=== PATIENT | male | born 1965 | race Caucasian/White ===

== ENCOUNTER 2022-09-04 17:33 | Inpatient (IN) | payer OTHER ==
[~2022-09-04] VITALS: Ht 170.2 cm; Wt 131.1 kg
--- NOTE | 2022-09-04 17:52 | NUR ---
PT IN BED 7, A/OX4 BREATHING IS EVEN AND UNLABORED. C/O: left leg swelling for 3 days not getting better with ABX therapy. no redness of assessment left heal wound saturated and fowl odor. pt has Hx of DM, HTN, several stents and cardiac pathologies.
[2022-09-04] MEDS ORDERED: KETOROLAC TROMETHAMINE INJ 30 MG/ML VIAL IV ONE (18:30)
[2022-09-04] MEDS ORDERED: FUROSEMIDE 40 MG/4 ML VIAL IV ONE (18:30)
[2022-09-04] MEDS ORDERED: VANCOMYCIN HCL 1.25 GM in IV D5W 260 ML IV ONE (18:30)
[2022-09-04] MEDS ORDERED: VANCOMYCIN 1 GM /D5W 250 ML PB IV ONE (18:32)
[2022-09-04] MEDS ORDERED: FUROSEMIDE 40 MG/4 ML VIAL ONE (18:32)
[2022-09-04] MEDS ORDERED: KETOROLAC TROMETHAMINE 15 MG/ML VIAL ONE (18:32)
[2022-09-04 19:17] LABS: BASOPHILS % (AUTO) 0.4 % (0.0-2.0); EOSINOPHILS % (AUTO) 4.1 % (0.0-6.0); HEMATOCRIT 30 % (39-51); HEMOGLOBIN 9.6 g/dL (13.5-17.5); LYMPHOCYTES # (AUTO) 1.4 K/uL (0.8-4.8); LYMPHOCYTES % (AUTO) 18.5 % (20.0-44.0); MEAN CORPUSCULAR HGB CONC 32 g/dl (31.0-36.0); MEAN CORPUSCULAR VOLUME 87 fL (80-96); MONOCYTES # (AUTO) 0.6 K/uL (0.1-1.30); MONOCYTES % (AUTO) 8.4 % (2.0-12.0); NEUTROPHILS # (AUTO) 5.1 K/uL (1.8-8.9); NEUTROPHILS % (AUTO) 68.6 % (43.0-81.0); PLATELET COUNT (AUTO) 226 K/uL (150-450); RED BLOOD CELL COUNT(AUTO) 3.44 MIL/uL (4.5-6.0); WHITE BLOOD COUNT (AUTO) 7.5 K/uL (4.3-11.0)
[2022-09-04 19:25] LABS: CARBON DIOXIDE 28 mmol/L (21-32); CHLORIDE 106 mmol/L (98-107); GLUCOSE 177 mg/dL (74-106); POTASSIUM 5.3 mmol/L (3.5-5.1); SODIUM SERUM 141 mmol/L (136-145); UREA NITROGEN, BLOOD 39 mg/dL (7-18)
[2022-09-04 19:41] LABS: ALANINE AMINOTRANSFERASE 19 U/L (12-78); ALBUMIN 2.8 g/dL (3.4-5.0); ALKALINE PHOSPHATASE 89 U/L (46-116); ASPARTATE AMINOTRANSFERASE 10 U/L (15-37); BILIRUBIN,DIRECT 0.1 mg/dL (0.0-0.2); BILIRUBIN,TOTAL 0.2 mg/dL (0.2-1.0); TOTAL PROTEIN, SERUM 6.8 g/dL (6.4-8.2)
--- NOTE | 2022-09-04 19:49 | NUR ---
[facility] PAGED
--- NOTE | 2022-09-04 20:31 | NUR ---
CONTACTED MD NIALL ON THE LINE WITH ADMITTING TECHNICAL PRODUCER
--- NOTE | 2022-09-04 21:04 | NUR ---
report given to rex durand for inpatient services.
--- NOTE | 2022-09-04 21:40 | NUR ---
integrated logistics programs directorrestaurant front manager Note Admitted this patient from ED via [facility] with ER staff at 2120 with dx of Acute Heart Failure. Patient is awake, alert and oriented x 4. On room air; tolerating well. VS taken as follows: T 97.7, WA 66, RR 20, O2 Sat 96%, BP 129/60 mm hg. Not in any form of respiratory or cardiac distress. Attached to telemetry box which reads sinus rhythm with 1st degree AV block and BBB hr-65 bpm. With complaints of pain on left foot. With IV access on left antecubital 20g and right forearm 22g: both patent, intact and saline locked. Able to make needs known. Body and skin assessment done. With wound on left heel. Picture taken and place to chart. Oriented to staff, room and unit. Fall and safety precautions initiated: call light and table within reach, side rails up x 2, bed in lowest locked position. Will continue to monitor throughout shift.
[2022-09-04 21:45] VITALS: BP 157/78; TEMP 98.2
[2022-09-04] MEDS ORDERED: ONDANSETRON HCL/PF 4 MG/2 ML VIAL IVP PRN (22:30)
[2022-09-04] MEDS ORDERED: ACETAMINOPHEN 325 MG TABLET PO PRN (22:30)
[2022-09-04] MEDS: MORPHINE SULFATE INJ 2 MG/ML DISP.SYRIN IV PRN (22:57)
--- NOTE | 2022-09-04 22:57 | NUR ---
RN Note - Pain Management Patient complained of left foot pain with pain scale of 9/10. PRN Morphine inj 2mg/1ml given IV as ordered. Kept comfortable in bed. Will continue to monitor.
[2022-09-04] MEDS: HEPARIN SODIUM, PORCINE 5000 UNITS/1 ML VIAL SQ SCH (23:03)
--- NOTE | 2022-09-04 23:03 | NUR ---
RN Note Hgb - 9.6, Hct - 30, Platelet- 226. No bleeding. Heparin 5000 units/1ml given sq as indicated. Kept comfortable in bed. Will continue to monitor.
[2022-09-05] VITALS: BP 148/75; TEMP 97.9
[2022-09-05 04:00] VITALS: BP 140/69; TEMP 97.6
[2022-09-05] MEDS: MORPHINE SULFATE INJ 2 MG/ML DISP.SYRIN IV PRN ×4 (04:15→22:03)
[2022-09-05] MEDS ORDERED: DEXTROSE 50%-WATER 50 ML DISP.SYRIN IV PRN ×2 (06:00→13:00)
[2022-09-05] MEDS: INSULIN REGULAR, HUMAN 100 UNIT/ML 3 ML VIAL SQ PRN ×4 (06:53→22:30)
[2022-09-05] MEDS: BLOOD SUGAR DIAGNOSTIC 1 EACH STRIP IN SCH ×4 (06:53→22:26)
--- NOTE | 2022-09-05 06:53 | NUR ---
RN Note Blood sugar checked - 121 mg/dl. No insulin coverage given as ordered per sliding scale. Will continue to monitor.
--- NOTE | 2022-09-05 06:56 | NUR ---
testing consultant Closing Note Patient in bed; awake, a/o x 4. Stable on room air. In no acute distress. On telemetry monitoring which reads sinus rhythm with 1st degree AV block and BBB hr-66 bpm. No c/o pain or discomfort. All needs attended. All due meds given as ordered. Fall and safety precautions maintained. Endorsed to incoming nurse for continuity of care.
[2022-09-05 07:00] VITALS: BP 113/51; TEMP 97.8
[2022-09-05 07:08] LABS: BASOPHILS % (AUTO) 0.7 % (0.0-2.0); EOSINOPHILS % (AUTO) 4.8 % (0.0-6.0); HEMATOCRIT 28 % (39-51); HEMOGLOBIN 9.1 g/dL (13.5-17.5); LYMPHOCYTES # (AUTO) 1.7 K/uL (0.8-4.8); MEAN CORPUSCULAR HGB CONC 32 g/dl (31.0-36.0); MEAN CORPUSCULAR VOLUME 88 fL (80-96); MONOCYTES # (AUTO) 0.6 K/uL (0.1-1.30); MONOCYTES % (AUTO) 8.3 % (2.0-12.0); NEUTROPHILS # (AUTO) 4.3 K/uL (1.8-8.9); NEUTROPHILS % (AUTO) 62.2 % (43.0-81.0); PLATELET COUNT (AUTO) 222 K/uL (150-450); RED BLOOD CELL COUNT(AUTO) 3.24 MIL/uL (4.5-6.0)
--- NOTE | 2022-09-05 07:25 | NUR ---
RN OPENING NOTE RECEIVED PATIENT IN BED , AWAKE, A/O X4, VERBALLY RESPONSIVE AND ABLE TO MAKE NEEDS KNOWN. NO SIGNS OF ACUTE DISTRESS NOTED. ON ROOM AIR, TOLERATING WELL. NO SOB NOTED, BREATHING EVEN AND UNLABORED. DENIES ANY PAIN AT THIS TIME. ON COURT OF APPEALS JUDGE SHOWING SINUS RHYTHM WITH BBB, HR @64. WITH IV ACCESS ON LEFT AC #20G AND RIGHT FOREARM #22G, INTACT AND PATENT, SALINE LOCKED. SAFETY MEASURE IN PLACE. BED IN LOW AND LOCKED POSITION, SIDE RAILS UP X2, CALL LIGHT PLACED WITHIN EASY REACH. WILL CONTINUE TO MONITOR PATIENT.
[2022-09-05 07:52] LABS: CALCIUM, SERUM 8.7 mg/dL (8.5-10.1); CREATININE 1.8 mg/dL (0.6-1.3); MAGNESIUM 1.9 mg/dL (1.8-2.4); PHOSPHORUS 4.3 mg/dL (2.5-4.9); POTASSIUM 4.8 mmol/L (3.5-5.1)
[2022-09-05] MEDS: HEPARIN SODIUM, PORCINE 5000 UNITS/1 ML VIAL SQ SCH ×2 (08:43→21:59)
[2022-09-05 08:59] LABS: THYROID STIMULATING HORMONE 1.74 uIU/mL (0.358-3.74)
[2022-09-05] MEDS ORDERED: HYDR-500 PO (10:56)
[2022-09-05] MEDS ORDERED: CEFT1VIA14 IJ (10:56)
[2022-09-05] MEDS ORDERED: CLOP75TA15 PO (10:56)
[2022-09-05] MEDS ORDERED: INSU100V7 SQ (10:56)
[2022-09-05] MEDS ORDERED: NITR0.4T48 SL (10:56)
[2022-09-05] MEDS ORDERED: HYDR-4077 PO (10:56)
[2022-09-05] MEDS ORDERED: PANT40TA2 PO (10:56)
[2022-09-05] MEDS ORDERED: TAMS-12 PO (10:56)
[2022-09-05] MEDS ORDERED: BISA10SU11 RC (10:56)
[2022-09-05] MEDS ORDERED: FURO-144 PO (10:56)
[2022-09-05] MEDS ORDERED: MULT-447 PO (10:56)
[2022-09-05] MEDS ORDERED: NA P133E RC (10:56)
[2022-09-05] MEDS ORDERED: ZINC50TA69 PO (10:56)
[2022-09-05] MEDS ORDERED: POVI3780 TP (10:56)
[2022-09-05] MEDS ORDERED: ESCI5TAB PO (10:56)
[2022-09-05] MEDS ORDERED: QUET50TA PO (10:56)
[2022-09-05] MEDS ORDERED: ACET-2605 PO (10:56)
[2022-09-05] MEDS ORDERED: SPIR50TA PO (10:56)
[2022-09-05] MEDS ORDERED: CARV25TA2 PO (10:56)
[2022-09-05] MEDS ORDERED: DOCU-141 PO (10:56)
[2022-09-05] MEDS ORDERED: SENN-261 PO (10:56)
[2022-09-05] MEDS ORDERED: BUPR2TAB3 SL (10:56)
[2022-09-05] MEDS ORDERED: AMLO-212 PO (10:56)
[2022-09-05] MEDS ORDERED: ACET-868 PO ×2 (10:56)
[2022-09-05] MEDS ORDERED: MAGN400O6 PO (10:56)
[2022-09-05] MEDS ORDERED: ASPI-1169 PO (10:56)
[2022-09-05] MEDS ORDERED: CLON0.1T PO (10:56)
[2022-09-05] MEDS ORDERED: DULA0.75 SQ (10:56)
[2022-09-05] MEDS ORDERED: ASCO-352 PO (10:56)
[2022-09-05] MEDS ORDERED: AMIN30LI2 PO (10:56)
[2022-09-05] MEDS ORDERED: ATOR40TA PO (10:56)
[2022-09-05] MEDS ORDERED: GABA800T11 PO (10:56)
[2022-09-05] MEDS ORDERED: POLY15DR40 EACHEYE (10:56)
[2022-09-05 13:00] VITALS: BP 127/64; TEMP 97.7
[2022-09-05] MEDS ORDERED: BUPRENORPHINE HCL 2 MG TAB.SUBL SL SCH (13:00)
[2022-09-05] MEDS ORDERED: NITROGLYCERIN 0.4 MG/TAB BOTTLE SL PRN (13:00)
[2022-09-05] MEDS ORDERED: BISACODYL SUPP (10 MG) 10 MG/SUPP.RECT SUPP.RECT RC PRN (13:00)
[2022-09-05] MEDS: GABAPENTIN 400 MG CAPSULE PO SCH ×2 (13:17→16:19)
[2022-09-05 16:00] VITALS: BP 131/56; TEMP 97.6
--- NOTE | 2022-09-05 16:07 | NUR ---
RN NOTE PATIENT PICKED UP FOR CT SCAN.
[2022-09-05] MEDS: hydrALAZINE HCL 50 MG TABLET PO SCH (16:19)
[2022-09-05] MEDS: CARVEDILOL 12.5 MG TABLET PO SCH (16:19)
[2022-09-05 18:08] LABS: CREATININE, URINE 73.4 MG/DL (30.0-125.0)
[2022-09-05 18:17] LABS: BILIRUBIN,URINE NEGATIVE (NEGATIVE); COLOR,URINE YELLOW (YELLOW); LEUKOCYTE ESTERASE ,URINE NEGATIVE (NEGATIVE); NITRITE, URINE NEGATIVE (NEGATIVE); PROTEIN,URINE 3+ mg/dl (NEGATIVE); UGLUCOSE NEGATIVE (NEGATIVE); UROBILINOGEN,URINE 0.2 EU/dL (0.2)
[2022-09-05 18:27] LABS: BACTERIA,URINE None seen /HPF (None Seen); MUCUS,URINE Few /LPF (None Seen); RBC,URINE 0-2 /HPF (0-2); SQUAMOUS EPITHELIAL CELL,UR 0-2 /HPF (None Seen); WBC,URINE 0-2 /HPF (0-3)
--- NOTE | 2022-09-05 18:42 | NUR ---
RN CLOSING NOTE PATIENT IN BED , ASLEEP, VERBALLY RESPONSIVE AND ABLE TO MAKE NEEDS KNOWN. NO SIGNS OF ACUTE DISTRESS NOTED. STABLE ON ROOM AIR, NO SOB NOTED, BREATHING EVEN AND UNLABORED. CONTINUE ON COUNTRY SALES MANAGER SHOWING SINUS RHYTHM WITH BBB, HR @66. WITH IV ACCESS ON LEFT AC #20G AND RIGHT FOREARM #22G, INTACT AND PATENT, SALINE LOCKED. SAFETY MEASURE MAINTAINED. BED IN LOW AND LOCKED POSITION, SIDE RAILS UP X2, CALL LIGHT PLACED WITHIN EASY REACH. WILL ENDORSE TO NEXT SHIFT FOR CONTINUITY OF CARE.
--- NOTE | 2022-09-05 19:40 | NUR ---
ground crewman Opening Note Received patient in bed; awake, alert and oriented x 4. On room air; tolerating well. Breathing even and nonlabored. Not in any form of respiratory or cardiac distress. On telemetry monitoring which reads sinus rhythm with bbb hr-69 bpm. No c/o any pain or discomfort. With IV access on left antecubital 20g and right forearm 22g; both patent, intact and saline locked. Able to verbalize needs. Fall and safety precautions implemented: call light and table within reach, side rails up x 3, bed in lowest locked position. Will continue to monitor throughout shift.
[2022-09-05 20:00] VITALS: BP_SYST 136; BP_DIAS 55; BP_DIAS 85; TEMP 98.1
[2022-09-05] MEDS: INSULIN GLARGINE, 100 UNIT/ML CARTRIDGE SQ SCH (22:00)
--- NOTE | 2022-09-05 22:00 | NUR ---
RN Note Patient refused to receive heparin inj 5000 units 1 ml. Explained risks and benefits of following medical regimen; still refused to receive medication. Will continue to monitor.
[2022-09-05] MEDS: SENNOSIDES 8.6 MG TABLET PO SCH (22:02)
[2022-09-05] MEDS: QUETIAPINE FUMARATE 25 MG TABLET PO SCH (22:02)
[2022-09-05] MEDS: ATORVASTATIN 40 MG TABLET PO SCH (22:04)
--- NOTE | 2022-09-05 22:58 | NUR ---
RN Note Blood sugar checked with result of 99 mg/dl; within normal range. No regular insulin coverage given per sliding scale. Insulin lantus 63 units held. Will continue to monitor for s/sx of hypoglycemia/hyperglycemia.
[2022-09-06] VITALS (7 sets, daily range): BP systolic 124–158; BP diastolic 66–77; TEMP 97.8–98.8
[2022-09-06] MEDS: MORPHINE SULFATE INJ 2 MG/ML DISP.SYRIN IV PRN ×4 (05:54→20:47)
--- NOTE | 2022-09-06 05:54 | NUR ---
RN Note - Pain Management Patient complained of left foot pain with pain scale of 10/10. PRN Morphine inj 2mg/1ml given IV as ordered. Kept comfortable in bed. Will continue to monitor.
[2022-09-06] MEDS: BLOOD SUGAR DIAGNOSTIC 1 EACH STRIP IN SCH ×4 (06:05→21:36)
[2022-09-06] MEDS: INSULIN REGULAR, HUMAN 100 UNIT/ML 3 ML VIAL SQ PRN ×4 (06:06→21:40)
--- NOTE | 2022-09-06 06:06 | NUR ---
RN Note - Accu-chek Blood sugar checked with result of 93 mg/dl; within normal range. No regular insulin coverage given per sliding scale. Will continue to monitor for s/sx of hypoglycemia/hyperglycemia.
[2022-09-06 06:17] LABS: BASOPHILS % (AUTO) 0.5 % (0.0-2.0); EOSINOPHILS % (AUTO) 4.5 % (0.0-6.0); HEMATOCRIT 30 % (39-51); HEMOGLOBIN 9.7 g/dL (13.5-17.5); LYMPHOCYTES # (AUTO) 1.4 K/uL (0.8-4.8); LYMPHOCYTES % (AUTO) 20.9 % (20.0-44.0); MEAN CORPUSCULAR HGB CONC 33 g/dl (31.0-36.0); MEAN CORPUSCULAR VOLUME 87 fL (80-96); MONOCYTES # (AUTO) 0.6 K/uL (0.1-1.30); MONOCYTES % (AUTO) 9.1 % (2.0-12.0); NEUTROPHILS # (AUTO) 4.5 K/uL (1.8-8.9); PLATELET COUNT (AUTO) 202 K/uL (150-450); RED BLOOD CELL COUNT(AUTO) 3.41 MIL/uL (4.5-6.0); WHITE BLOOD COUNT (AUTO) 6.9 K/uL (4.3-11.0)
[2022-09-06 06:41] LABS: ALBUMIN 2.5 g/dL (3.4-5.0); BILIRUBIN,TOTAL 0.3 mg/dL (0.2-1.0); CALCIUM, SERUM 9.1 mg/dL (8.5-10.1); CREATININE 1.7 mg/dL (0.6-1.3); MAGNESIUM 1.9 mg/dL (1.8-2.4); POTASSIUM 4.6 mmol/L (3.5-5.1); TOTAL PROTEIN, SERUM 6.3 g/dL (6.4-8.2)
--- NOTE | 2022-09-06 06:45 | NUR ---
gas turbine assembler Closing Note Patient in bed; awake, a/o x 4. Stable on room air. In no acute distress. No c/o pain or discomfort. With IV access on left antecubital 20g and right forearm 22g both: patent, intact and saline locked. On telemetry monitoring which reads sr with 1st degree av block and bbb hr-68 bpm. All needs met. All due meds given as ordered. Fall and safety precautions maintained. Endorsed to incoming nurse for continuity of care.
--- NOTE | 2022-09-06 07:30 | NUR ---
Received Pt care from shift leader. Pt A/O*4, follow commands, no SOB, and no distress at this moment. Complaint of left foot pain when touching. Respiration regular, even and unlabored. Skin dry, but has left heel open wound. IV site right forearm 22G SL and left AC 20G SL patent and dressing intact. ekg monitor captured sinus rhythm at 70bpm. Bowel sounds present all quadrants. Hand grades 1 through 5 teacher strong equally CMS intact. bilateral feet and legs are swelling. All safety measures in place. Bed in low and locked, call light and table in reach, side rails up*2. Will continue monitoring. Addendum: 09/06/22 at 1105 by KRISTINE MARTINEZ RN contract implementation analyst Opening Note
[2022-09-06] MEDS: GABAPENTIN 400 MG CAPSULE PO SCH ×3 (09:01→17:16)
[2022-09-06] MEDS: ASPIRIN 81 MG TAB.CHEW PO SCH (09:01)
[2022-09-06] MEDS: CLOPIDOGREL BISULFATE 75 MG TABLET PO SCH (09:01)
[2022-09-06] MEDS: TAMSULOSIN 0.4 MG CAP.SR.24H PO SCH (09:01)
[2022-09-06] MEDS: ASCORBIC ACID 500 MG TABLET PO SCH (09:01)
[2022-09-06] MEDS: AMLODIPINE BESYLATE 5 MG TABLET PO SCH (09:02)
[2022-09-06] MEDS: CARVEDILOL 12.5 MG TABLET PO SCH ×2 (09:03→17:17)
[2022-09-06] MEDS: SPIRONOLACTONE 25 MG TABLET PO SCH (09:03)
[2022-09-06] MEDS: hydrALAZINE HCL 50 MG TABLET PO SCH ×2 (09:03→17:18)
[2022-09-06] MEDS: DOCUSATE SODIUM 100 MG CAPSULE PO SCH (09:04)
[2022-09-06] MEDS: HEPARIN SODIUM, PORCINE 5000 UNITS/1 ML VIAL SQ SCH ×2 (09:04→21:12)
[2022-09-06] MEDS: ESCITALOPRAM OXALATE (10 MG) 10 MG TABLET PO SCH (09:05)
[2022-09-06] MEDS: FUROSEMIDE 40 MG TABLET PO SCH (09:06)
[2022-09-06] MEDS: PANTOPRAZOLE 40 MG TABLET.DR PO SCH (09:06)
--- NOTE | 2022-09-06 10:16 | NUR ---
WOUND CARE CONSULT: PT PRESENTS WITH LEFT HEEL OPEN BLISTER, PRESENT ON ADMISSION. DR GARIBAY CALLED FOR DPM CONSULT. IN AGREEMENT WITH PLAN OF CARE. DISCUSSED SKIN PROTECTION WITH NURSING STAFF.
--- NOTE | 2022-09-06 10:50 | NUR ---
neurology physician Note Pt complaint of left foot pain 8 out of 10 pounding pain, constant and unease by breathing and resting. PRN Morphine 2mg IVP was administered per MD order. Will continue monitoring.
[2022-09-06] MEDS: SOD FERRIC GLUC 125 MG in IV NS 0.9% 100 ML IV SCH (14:39)
[2022-09-06 15:35] LABS: PROSTATE SPECIFIC ANTIGEN SCR 0.26 ng/mL (0.00-4.00)
--- NOTE | 2022-09-06 18:45 | NUR ---
RN MS Closing Note Pt A/O*4, follow commands, no SOB, no pain and no distress at this moment. Respiration regular, even and unlabored with RA. Skin dry, but has left heel open wound covered by Xeroform and Mepilex. IV site left AC 20G SL patent and dressing intact. circuit tester discontinued per MD order and monitor returned to biomed tech. Bowel sounds present all quadrants. No bowel movement today. Voided 4 times with total output of 2500mL. Hand pipe insulator strong equally CMS intact. bilateral feet and legs are swelling. All safety measures in place. Bed in low and locked, call light and table in reach, side rails up*2. Endorsed pt care to chemist food.
--- NOTE | 2022-09-06 19:45 | NUR ---
MS RITCHIE INITIAL NOTES RECEIVED REPORT FROM AM NURSE AND SEEN PATIENT IN BED LYING DOWN ON HIS RIGHT SIDE. RESTING WITH EYES CLOSED BUT AROUSE EASILY. HE HAS HEPLOCK ON HIS LEFT AC PATENT AND INTACT , DENIES ANY PAIN OR ANY DISCOMFORT. EDUCATE PATIENT REGARDING HIS DIET AND FLUID INTAKE AND AT THE SAME TIME ABOUT THE CHF . PT UNDERSTOOD WELL. KEPT HIM WARM AND COMFORTABLE AT ALL TIMES. BED IN LOW AND LOCK IN POSITION WITH SIDE RAILS X2 UP AND CALL LIGHT AT REACH. WILL CONTINUE MONITORING.
[2022-09-06] MEDS: INSULIN GLARGINE, 100 UNIT/ML CARTRIDGE SQ SCH (21:38)
[2022-09-06] MEDS: ATORVASTATIN 40 MG TABLET PO SCH (21:43)
[2022-09-06] MEDS: QUETIAPINE FUMARATE 25 MG TABLET PO SCH (21:44)
[2022-09-06] MEDS: SENNOSIDES 8.6 MG TABLET PO SCH (21:44)
--- NOTE | 2022-09-06 22:07 | NUR ---
MS RITCHIE NOTES ROUTINE MEDS GIVEN ORDERED. BLOOD SUGAR CHECKED DONE WELL 131, 2 UNITS OF REGULAR INSULIN AT THIS TIME GIVEN ROSHAN SQ ORDERED. SNACKS ALSO SERVED. WILL CONTINUE MONITORING.
[2022-09-07] MEDS: MORPHINE SULFATE INJ 2 MG/ML DISP.SYRIN IV PRN ×3 (01:34→12:05)
--- NOTE | 2022-09-07 01:34 | NUR ---
RN NOTE PT COMPLAINED OF L FOOT PAIN 12/28. ADMINISTERED MORPHINE 2 MG FOR SEVERE PAIN ORDERED. ALL NEEDS MET AT THIS TIME.
[2022-09-07] MEDS: BLOOD SUGAR DIAGNOSTIC 1 EACH STRIP IN SCH ×2 (07:04→12:03)
[2022-09-07] MEDS: INSULIN REGULAR, HUMAN 100 UNIT/ML 3 ML VIAL SQ PRN ×2 (07:05→12:04)
[2022-09-07 07:18] LABS: BASOPHILS % (AUTO) 0.5 % (0.0-2.0); EOSINOPHILS % (AUTO) 3.8 % (0.0-6.0); HEMATOCRIT 30 % (39-51); HEMOGLOBIN 9.7 g/dL (13.5-17.5); LYMPHOCYTES # (AUTO) 1.5 K/uL (0.8-4.8); LYMPHOCYTES % (AUTO) 21.8 % (20.0-44.0); MEAN CORPUSCULAR HGB CONC 33 g/dl (31.0-36.0); MEAN CORPUSCULAR VOLUME 87 fL (80-96); MONOCYTES # (AUTO) 0.7 K/uL (0.1-1.30); MONOCYTES % (AUTO) 9.6 % (2.0-12.0); NEUTROPHILS # (AUTO) 4.5 K/uL (1.8-8.9); NEUTROPHILS % (AUTO) 64.3 % (43.0-81.0); PLATELET COUNT (AUTO) 239 K/uL (150-450); RED BLOOD CELL COUNT(AUTO) 3.43 MIL/uL (4.5-6.0)
[2022-09-07] MEDS: PANTOPRAZOLE 40 MG TABLET.DR PO SCH (07:34)
[2022-09-07] MEDS: HYDROCODONE/APAP 5/325MG TABLET PO PRN ×2 (07:38→07:39)
--- NOTE | 2022-09-07 07:38 | NUR ---
MS RN OPENING NOTE (DAY SHIFT) Received patient sleeping peacefully in bed, easily aroused, oriented x 4 with c/o pain to left foot. Safety measures in place: bed in lowest position; bed brakes on; bed alarm on; bed side rails up x 2; call marroquin/light withingn easy reach of patient. Will continue to care for and monitor patient per hospitalist MD's POC.
--- NOTE | 2022-09-07 07:42 | NUR ---
MS SOCIAL SERVICE TECHNICIAN CLOSING NOTES PT SLEEPING AT THIS TIME NO SIGNS OF ANY DISTRESS OR ANY DISCOMFORT NOTED. ALL DUE MEDS GIVEN AND ALL NEEDS MET. STABLE THROUGHOUT THE NIGHT . BLOOD SUGAR CHECKED DONE 118 NO INSULIN DUE AT THIS TIME. NO SIGNS OF HYPO GLYCEMIA NOTED. KEPT HIM WARM AND COMFORTABLE AT ALL TIMES. BED IN LOW AND LOCK IN POSITION WITH SIDE RAILS X2 UP . ENDORSED TO AM NURSE FOR CONTINUITY OF CARE.
--- NOTE | 2022-09-07 07:46 | NUR ---
MEDICATION NOTE- WITNESS WASTE I WITNESSED TATO, RN WASTE MEDICATION 1 TAB (5MG HYDROCODONE/ 325MG ACETAMINOPHEN) FOR PT DOMINIQUE GROSS INTO WHITE PHARMACEUTICAL WASTE BOX IN OMNICELL ROOM. PER TATO PATIENT REFUSED DUE TO MEDICATION UPSETTING HIS STOMACH.
--- NOTE | 2022-09-07 07:46 | NUR ---
WASTED NARCOTIC MEDICATION (DAY SHIFT) Patient c/o pain to left foot. Nurse attempted to give norco, but patient refused stating that norco upsets his stomach. Wasted entire 1 tab (5mg hydrocodone/325mg acetaminophen). Waste was witnessed by Amparo Ramos LVN and recorded in [employer].
[2022-09-07 07:51] LABS: ALBUMIN 2.4 g/dL (3.4-5.0); BILIRUBIN,TOTAL 0.2 mg/dL (0.2-1.0); CALCIUM, SERUM 8.7 mg/dL (8.5-10.1); CREATININE 1.7 mg/dL (0.6-1.3); MAGNESIUM 1.7 mg/dL (1.8-2.4); PHOSPHORUS 4.4 mg/dL (2.5-4.9); POTASSIUM 4.6 mmol/L (3.5-5.1); TOTAL PROTEIN, SERUM 6.2 g/dL (6.4-8.2)
[2022-09-07 08:00] VITALS: BP 139/63; TEMP 97.8
[2022-09-07] MEDS: DOCUSATE SODIUM 100 MG CAPSULE PO SCH ×2 (09:00→09:17)
[2022-09-07] MEDS: ESCITALOPRAM OXALATE (10 MG) 10 MG TABLET PO SCH (09:16)
[2022-09-07] MEDS: FUROSEMIDE 40 MG TABLET PO SCH (09:16)
[2022-09-07] MEDS: ASPIRIN 81 MG TAB.CHEW PO SCH (09:16)
[2022-09-07] MEDS: ASCORBIC ACID 500 MG TABLET PO SCH (09:17)
[2022-09-07] MEDS: hydrALAZINE HCL 50 MG TABLET PO SCH (09:17)
[2022-09-07] MEDS: GABAPENTIN 400 MG CAPSULE PO SCH ×2 (09:17→12:04)
[2022-09-07] MEDS: TAMSULOSIN 0.4 MG CAP.SR.24H PO SCH (09:18)
[2022-09-07] MEDS: AMLODIPINE BESYLATE 5 MG TABLET PO SCH (09:18)
[2022-09-07] MEDS: SPIRONOLACTONE 25 MG TABLET PO SCH (09:20)
[2022-09-07 09:21] VITALS: BP 139/63
[2022-09-07] MEDS: CARVEDILOL 12.5 MG TABLET PO SCH (09:21)
[2022-09-07] MEDS: HEPARIN SODIUM, PORCINE 5000 UNITS/1 ML VIAL SQ SCH (09:26)
[2022-09-07] MEDS: CLOPIDOGREL BISULFATE 75 MG TABLET PO SCH (09:26)
[2022-09-07] MEDS ORDERED: MAGNESIUM OXIDE 400 MG TABLET PO ONE (10:00)
[2022-09-07 10:07] LABS: *SPE A/G RATIO 0.9 (0.7-1.7); *SPE ALPHA-1-GLOBULIN 0.3 g/dL (0.0-0.4); *SPE BETA GLOBULIN 0.8 g/dL (0.7-1.3); *SPE M-SPIKE Not Observed g/dL (Not Observed)
[2022-09-07 11:07] LABS: AFP, TUMOR MARKER <1.8 ng/mL (0.0-8.4)
[2022-09-07 13:07] LABS: IMMUNOGLOBULIN A, SERUM 344 mg/dL (90-386); IMMUNOGLOBULIN G, SERUM 912 mg/dL (603-1613); IMMUNOGLOBULIN M, SERUM 133 mg/dL (20-172)
[2022-09-07] MEDS: SOD FERRIC GLUC 125 MG in IV NS 0.9% 100 ML IV SCH (14:00)
--- NOTE | 2022-09-07 15:51 | NUR ---
MS STORE CLERK CHECKER TO SNF NOTE (DAY SHIFT) Patient tolerated well the removal of IV catheter fully intact from left antecubital space without any complications of IV therapy observed. Patient demonstrated understanding of discharge/ post hospital stay POC instructions using teach back method in his own words. Left heel dressing was changed with minimal discomfort in afternoon. Patient departed the [facility] at 15:45 hours via gurney to [facility] ambulance bound for Room 23 -B at the [facility]. Phone report given to receiving nurse, Ashley, of the [facility].
== END 2022-09-07 15:45 | DRG 194 ==
LOC: ER 17:41 → TELE 20:52 → MED 09-06 12:32
PROVIDERS: ADMIT Nurse Practitioner Acute Care
DX: I50.33 Acute on chronic diastolic (congestive) heart failure (principal); N17.0 Acute kidney failure with tubular necrosis; E44.0 Moderate protein-calorie malnutrition; G61.0 Guillain-Barre syndrome; D68.59 Other primary thrombophilia; E88.09 Other disorders of plasma-protein metabolism, not elsewhere classified; D63.8 Anemia in other chronic diseases classified elsewhere; J90 Pleural effusion, not elsewhere classified; I42.9 Cardiomyopathy, unspecified; E11.22 Type 2 diabetes mellitus with diabetic chronic kidney disease; I25.10 Atherosclerotic heart disease of native coronary artery without angina pectoris; K21.9 Gastro-esophageal reflux disease without esophagitis; J44.9 Chronic obstructive pulmonary disease, unspecified; F31.9 Bipolar disorder, unspecified; H54.7 Unspecified visual loss; N18.9 Chronic kidney disease, unspecified; E66.01 Morbid (severe) obesity due to excess calories; E87.5 Hyperkalemia; Z79.4 Long term (current) use of insulin; Z79.82 Long term (current) use of aspirin; Z79.899 Other long term (current) drug therapy; K80.20 Calculus of gallbladder without cholecystitis without obstruction; Z99.3 Dependence on wheelchair; F17.200 Nicotine dependence, unspecified, uncomplicated; G47.33 Obstructive sleep apnea (adult) (pediatric); D50.9 Iron deficiency anemia, unspecified; I87.8 Other specified disorders of veins; N43.3 Hydrocele, unspecified; S90.822A Blister (nonthermal), left foot, initial encounter; X58.XXXA Exposure to other specified factors, initial encounter; Y92.9 Unspecified place or not applicable; T50.2X5A Adverse effect of carbonic-anhydrase inhibitors, benzothiadiazides and other diuretics, initial encounter; Z80.7 Family history of other malignant neoplasms of lymphoid, hematopoietic and related tissues; J98.11 Atelectasis; R59.0 Localized enlarged lymph nodes
CPT/HCPCS: 36415; 71045-TC; 71250-TC; 73590-TC; 73630-TC; 76770-TC; 76870-TC; 80048-TC; 80053-TC; 80061-TC; 80076-TC; 81001; 82105; 82378; 82570-TC; 82607-TC; 82728-TC; 82784; 82962-TC; 83540-TC; 83615-TC; 83735-TC; 83880; 84100-TC; 84153-TC; 84154-TC; 84155; 84165; 84300-TC; 84439-TC; 84443-TC; 84484-TC; 84702-TC; 85025-TC; 85730-TC; 86334; 87081-TC; 93307-TC; 93971-TC; 97112-TC; 97116-TC; 97530-TC; A4223; A6403; G0378; J1644; J1815; J1885; J1940; J2270; J2916; J3370; J7030; J7050; J7060

== ENCOUNTER 2022-12-20 18:16 | Emergency (ER) | payer OTHER ==
[~2022-12-20] VITALS: Ht 170.2 cm; Wt 130.2 kg
[~2022-12-20 18:16] MED LIST: ACET-2605 PO; ACET-868 PO; AMIN30LI2 PO; AMLO-212 PO; ASCO-352 PO; ASPI-1169 PO; ATOR40TA PO; BISA10SU11 RC; BUPR2TAB3 SL; CARV25TA2 PO; CEFT1VIA14 IJ; CLON0.1T PO; CLOP75TA15 PO; DOCU-141 PO; DULA0.75 SQ; ESCI5TAB PO; FURO-144 PO; GABA800T11 PO; HYDR-4077 PO; HYDR-500 PO; INSU100V7 SQ; MAGN400O6 PO; MULT-447 PO; NA P133E RC; NITR0.4T48 SL; PANT40TA2 PO; POLY15DR40 EACHEYE; POVI3780 TP; QUET50TA PO; SENN-261 PO; SPIR50TA PO; TAMS-12 PO; ZINC50TA69 PO
[2022-12-20 19:19] LABS: BASOPHILS % (AUTO) 0.3 % (0.0-2.0); EOSINOPHILS # (AUTO) 0.3 K/uL (0.0-0.7); EOSINOPHILS % (AUTO) 2.8 % (0.0-6.0); HEMATOCRIT 34 % (39-51); HEMOGLOBIN 11.2 g/dL (13.5-17.5); LYMPHOCYTES # (AUTO) 1.5 K/uL (0.8-4.8); LYMPHOCYTES % (AUTO) 17.1 % (20.0-44.0); MEAN CORPUSCULAR HEMOGLOBIN 29 PG (26.0-33.0); MEAN CORPUSCULAR HGB CONC 33 g/dl (31.0-36.0); MEAN CORPUSCULAR VOLUME 87 fL (80-96); MONOCYTES # (AUTO) 0.7 K/uL (0.1-1.30); MONOCYTES % (AUTO) 7.7 % (2.0-12.0); NEUTROPHILS # (AUTO) 6.4 K/uL (1.8-8.9); NEUTROPHILS % (AUTO) 72.1 % (43.0-81.0); PLATELET COUNT (AUTO) 226 K/uL (150-450); RED BLOOD CELL COUNT(AUTO) 3.85 MIL/uL (4.5-6.0); RED CELL DISTRIBUTION WIDTH 14.1 % (11.5-15.0); WHITE BLOOD COUNT (AUTO) 8.9 K/uL (4.3-11.0)
[2022-12-20 19:44] LABS: CALCIUM, SERUM 8.4 mg/dL (8.5-10.1); CARBON DIOXIDE 27 mmol/L (21-32); CHLORIDE 106 mmol/L (98-107); CREATININE 1.8 mg/dL (0.6-1.3); GLUCOSE 121 mg/dL (74-106); POTASSIUM 4.8 mmol/L (3.5-5.1); SODIUM SERUM 139 mmol/L (136-145); UREA NITROGEN, BLOOD 36 mg/dL (7-18)
[2022-12-20] MEDS ORDERED: ASPIRIN 325 MG TABLET PO ONE (20:30)
[2022-12-20] MEDS ORDERED: ASPIRIN 325 MG TABLET ONE (20:39)
[2022-12-20] MEDS ORDERED: IOHEXOL-350 100 ML VIAL IV ONE (21:32)
[2022-12-20] MEDS ORDERED: IV NS 0.9% 250 ML IV ONE (21:32)
[2022-12-20 23:33] VITALS: BP 161/83; TEMP 98.3; O2SAT 95
== END 2022-12-20 23:34 ==
LOC: ER 18:27
DX: R07.89 Other chest pain (principal); K21.9 Gastro-esophageal reflux disease without esophagitis; E11.9 Type 2 diabetes mellitus without complications; F17.200 Nicotine dependence, unspecified, uncomplicated; Z79.899 Other long term (current) drug therapy; Z79.4 Long term (current) use of insulin; Z79.82 Long term (current) use of aspirin; Z86.73 Personal history of transient ischemic attack (TIA), and cerebral infarction without residual deficits
CPT/HCPCS: 99285; 71275; 71045; 93005 ×3; 85025; 80048; 85378; 36415; 84484 ×2; J7050; Q9967